=== PATIENT | male | born 1980 | race African-American/Black ===

== ENCOUNTER 2017-03-29 23:51 | Emergency (ER) | payer OTHER ==
[~2017-03-29] VITALS: Ht 175.3 cm; Wt 96.5 kg
[2017-03-30] MEDS ORDERED: VENTOLIN HFA18 GM IH (01:27)
[2017-03-30] MEDS ORDERED: ROBITUSSIN AC,T10 ML PO (01:27)
[2017-03-30 01:39] VITALS: BP 120/87
== END 2017-03-30 01:41 | disposition home or self-care (01) ==
LOC: EME 23:51
DX: J11.1 Influenza due to unidentified influenza virus with other respiratory manifestations (principal); J98.01 Acute bronchospasm; F17.200 Nicotine dependence, unspecified, uncomplicated
CPT/HCPCS: 87502; 94640; 99281; 99283